=== PATIENT | male | born 1975 | race Two or more races ===

== ENCOUNTER 2016-06-18 05:10 | Day surgery (SDC) | payer OTHER ==
[2016-05-28 10:35] VITALS: BMI 25.8
[2016-06-18] MEDS ORDERED: ROPIVACAINE HCL 0.5% 30ML VIAL ONE (07:52)
[2016-06-18] MEDS ORDERED: MIDAZOLAM HCL 2 MG/2 ML SINGLE DOSE VIAL ONE ×3 (07:53→08:19)
--- NOTE | 2016-06-18 07:56 | HP ---
Satellite [facility] - Chief Complaint Chief Complaint: right knee pain/instability - Past Medical History Allergies/Adverse Reactions: Allergies Allergy/AdvReac Type Severity Reaction Status Date / Time No Known Allergies Allergy Verified 06/18/16 07:04 - Current Medications Current Medications: Home Medications Medication Instructions Recorded Aspirin [ASA -] 81 mg PO DAILY 05/28/16 Oxycodone HCl/Acetaminophen 1 - 2 tab PO Q6H #50 tab MDD 8 06/18/16 [Percocet 5-325 mg Tablet -] Satellite Physical Exam - Physical Examination Vital Signs: Vital Signs Period Temp Pulse Resp BP Sys/Aparicio Pulse Ox Last 24 Hr 98.4 F 69 20 140/6 100 General Appearance: Well Nourished, Well Developed, Alert & Oriented x3 ENT: Clear Lung: Normal air movement Heart: Regular rate & rhythm Extremities: Other (right knee- + swelling, + ttp, + rosa, + ant draw, + pivot, nvi MRI + ACL rupture) Neurological: Intact, Alert, Oriented Satellite Impression/Plan - Impression/Plan Impression: right knee ACL rupture Operative Procedure: right knee arthroscopy with ACL reconstruction using allograft Date to be Performed: 06/18/16
[2016-06-18] MEDS ORDERED: DEXAMETHASONE SOD PHOSPHATE 4 MG/1 ML VIAL ONE (08:19)
[2016-06-18] MEDS ORDERED: ceFAZolin SODIUM 1 GM VIAL ONE ×2 (08:19→13:32)
[2016-06-18] MEDS ORDERED: KETOROLAC TROMETHAMINE 30 MG/1 ML VIAL ONE (08:19)
[2016-06-18] MEDS ORDERED: PROPOFOL 20 ML ONE ×3 (08:19)
[2016-06-18] MEDS ORDERED: SODIUM CHLORIDE 0.9% P/F 10 ML VIAL IJ ONE (08:19)
[2016-06-18] MEDS ORDERED: ceFAZolin SODIUM 1 GM VIAL IVPB ONE (08:45)
--- NOTE | 2016-06-18 09:48 | OP ---
Operative Note - Note: Operative Date: 06/18/16 ([facility]) Pre-Operative Diagnosis: right knee acl rupture Operation: right knee arthroscopy with ACL reconstruction using allograft Implants: arthrex graftlink Post-Operative Diagnosis: Same as Pre-op Surgeon: Ar Haney Automotive Artist: Johnny Hays Anesthesiologist/ELECTRICAL CONTACTS ADJUSTER: Casper Bowden Jr. Anesthesia: Spinal, Local Specimens Removed: shavings Estimated Blood Loss (mls): 5 Operative Report Dictated: Yes
[2016-06-18] MEDS ORDERED: CEFAZOLIN 1 GM in DEXTROSE 5%-WATER - 50 ML IVPB ONE (10:00)
[2016-06-18] MEDS ORDERED: ONDANSETRON 4 MG/2 ML VIAL IVPUSH PRN (10:31)
[2016-06-18] MEDS ORDERED: oxyCODONE HCL 5 MG TABLET PO PRN (10:31)
[2016-06-18] MEDS ORDERED: LACTATED RINGERS SOLUTION 1,000 ML IV SCH (10:45)
[2016-06-18 13:57] VITALS: TEMP 97.7
[2016-06-18 16:02] VITALS: BP 138/76; PULSE 73
--- NOTE | 2016-06-19 11:01 | SPEC ---
DATE OF OPERATION: 06/18/2016 PREOPERATIVE DIAGNOSIS: Right anterior cruciate ligament tear. POSTOPERATIVE DIAGNOSIS: Right anterior cruciate ligament tear. PROCEDURE: Right anterior cruciate ligament reconstruction with Arthrex "GraftLink." SURGICAL ATTENDING: Ar Haney MD SUPPORT COORDINATOR: NIMA Noonan ANESTHESIA: Regional and spinal. CLOSURE: An Arthrex GraftLink for the graft and 3-0 nylon for skin. ESTIMATED BLOOD LOSS: Negligible. COMPLICATIONS: None. CONDITION: To recovery room in stable condition. DESCRIPTION OF OPERATIVE PROCEDURE: Patient was taken to the operating room on June 18, 2016. Regional and spinal anesthesia was administered by the anesthesiologist. Intravenous Kefzol was administered prophylactically prior to the case. Patient was placed supine on the operating room table, and the right lower extremity was prepped and draped in usual sterile fashion. Superolateral and medial lateral infrapatellar portal sites were made with a 15-blade blunt trocar. The superolateral portal was used as the outflow portal, with outflow trocar being placed. The lateral infrapatellar portal was the scope portal, and the medial infrapatellar portal was the working portal. Scope was placed up into the suprapatellar pouch. The pouch was visualized to be clean, the medial and lateral gutters visualized to be clean. The undersurface of the patella and trochlea were visualized to be intact with valgus stress on the knee. The medial compartment was entered. The medial meniscus was visualized, probed, and found to be intact. The medial femoral condyle was run and found to be intact, as was the medial tibial plateau. In the figure-4 position, the lateral compartment was entered. The lateral meniscus was visualized, probed, and found to be intact. Lateral femoral condyle was run and found to be intact, as was the lateral tibial plateau. At 90 degrees, the ACL was visualized to be completely torn. Its stump was debrided using the ArthroCare and the shaver. A notchplasty was then performed using the bur and the shaver, gaining sufficient width and height of the notch to perform the procedure. This also allowed us to see the site in the posterior aspect of the notch for the appropriate femoral tunnel placement. Using an [id number] guide with a small stab incision on the anterolateral distal femur, a FlipCutter was drilled into the knee at the appropriate aspect in the posterior aspect of the notch. The FlipCutter was then flipped and then a retrograde drilling of about 25 mm was performed and no violation of the lateral femoral cortex. FlipCutter was then pushed back into the knee, unflipped, and pulled out of the knee. A FiberStick suture was placed down this cannula and this tunnel exiting the portal and was clamped to itself for later use. All bone fragments in the knee were debrided using the shaver. Using the tibial guide, a FlipCutter was drilled from the anteromedial proximal tibia until it entered the knee just anterior to the PCL. The FlipCutter was deployed. Retrograde drilling was performed approximately 25 mm. The FlipCutter was placed back into the knee, unflipped, and pulled out of the knee. A TigerStick suture was placed up the tibial tunnel and exiting the inferomedial portal and clamped to itself. All bone fragments inside the knee were debrided using the shaver. The GraftLink was prepared on the back table with a button fastened to the toggle sutures. The graft was pulled into the knee using the FiberStick and the TigerStick up in the femur and down the tibia, first up in the femur and allowing the button to deploy on the lateral femoral cortex and engage. The toggle sutures were used to pull the graft up to over 20 mm into the femoral tunnel. Then, the toggle sutures were used to cinch a button down to the anteromedial proximal tibia, cinching the tibial side of the graft to the anteromedial cortex of the tibia. With 20 degrees of flexion, posterior drill being applied, both toggle sutures were pulled in order to tension the graft appropriately. The knee was taken through a range of motion and found to have full extension, full flexion, with excellent tension of the ACL, good crossing of the PCL, and no impingement on the notch. All sutures were cut flush on the tibia and pulled through on the femur. Then, the arthroscopic cutter was used to push and cut the sutures flush with the tibial cortex. All portals were closed using 3-0 nylon. A sterile pressure dressing was applied. The patient was awakened from anesthesia and transferred to the recovery room in stable condition. No complications. Estimated blood loss negligible. Alirio [id number]
--- NOTE | 2016-06-21 15:39 | PATH ---
Surgical Pathology Report Patient Name: TAVON SINGER [facility]. Rec. #: [id number] /Age/Gender: 1975 (Age: 41) / M Account: [id number] Location: [facility] SURGICAL Taken: 06/18/2016 Received: 06/18/2016 Reported: 06/21/2016 Physicians: Ar Haney M.D. Specimen(s) Received SHAVINGS RIGHT KNEE Clinical History Right knee ACL tear Final Diagnosis SOFT TISSUE, RIGHT KNEE, ARTHROSCOPIC SHAVINGS: SYNOVIUM AND FIBROCARTILAGE WITH MYXOHYALINE DEGENERATION. Electronically Signed Sohail Valentino M.D. Gross Description Received in formalin, labeled "right knee shavings" is a 4.5 x 4.0 x 0.7 cm aggregate of singh-yellow soft tissue fragments. A chain sales representative portion is submitted in one cassette. /06/18/201606/18/2016
== END 2016-06-18 15:00 | disposition home or self-care (01) ==
LOC: JASU-SURG 05:10
PROVIDERS: ATTEND Orthopaedic Surgery
PROC: 0MUN4JZ Supplement Right Knee Bursa and Ligament with Synthetic Substitute, Percutaneous Endoscopic Approach (ICD-10-PCS; principal; 2016-06-18 08:15)
DX: S83.511A Sprain of anterior cruciate ligament of right knee, initial encounter (principal); X58.XXXA Exposure to other specified factors, initial encounter; Y93.9 Activity, unspecified; Y92.9 Unspecified place or not applicable
CPT/HCPCS: 88304-TC; 94760

== ENCOUNTER 2019-01-17 05:18 | Day surgery (SDC) | payer OTHER ==
[2019-01-10 15:26] VITALS: BMI 25.0
[2019-01-17] MEDS ORDERED: MIDAZOLAM HCL 2 MG/2 ML SINGLE DOSE VIAL ONE ×3 (06:59→07:13)
[2019-01-17] MEDS ORDERED: LIDOCAINE HCL/PF 2% SDV 5ML VIAL ONE (07:02)
[2019-01-17] MEDS ORDERED: DEXAMETHASONE SOD PHOSPHATE 4 MG/1 ML VIAL ONE (07:02)
[2019-01-17] MEDS ORDERED: KETOROLAC TROMETHAMINE 30 MG/1 ML VIAL ONE (07:02)
[2019-01-17] MEDS ORDERED: PROPOFOL 20 ML ONE ×2 (07:02)
[2019-01-17] MEDS ORDERED: SUCCINYLCHOLINE CHLORIDE 200 MG/10 ML SYRINGE ONE (07:09)
[2019-01-17] MEDS ORDERED: BUPIVACAINE HCL/PF 0.5% (5 MG/ML) 30 ML VIAL IJ ONE (07:10)
[2019-01-17] MEDS ORDERED: DEXAMETHASONE SOD PHOSPHATE/PF 10 MG/ML SDV ONE (07:26)
[2019-01-17] MEDS ORDERED: ONDANSETRON 4 MG/2 ML VIAL IVPUSH PRN (07:44)
[2019-01-17] MEDS ORDERED: oxyCODONE HCL 5 MG TABLET PO PRN ×2 (07:44)
[2019-01-17] MEDS ORDERED: LACTATED RINGERS SOLUTION 1,000 ML IV SCH (07:45)
[2019-01-17] MEDS ORDERED: ceFAZolin SODIUM 1 GM VIAL ONE (08:10)
[2019-01-17] MEDS ORDERED: SODIUM CHLORIDE 0.9% P/F 10 ML VIAL IJ ONE (08:10)
[2019-01-17] MEDS ORDERED: ceFAZolin SODIUM 1 GM VIAL IVPB ONE (08:17)
[2019-01-17] MEDS ORDERED: ACETAMINOPHEN 1000 MG/100 ML VIAL (NON FORMULARY) IVPB ONE (09:30)
--- NOTE | 2019-01-17 10:04 | HP ---
Satellite H - Chief Complaint Chief Complaint: right knee pain, instability - Past Medical History Allergies/Adverse Reactions: Allergies Allergy/AdvReac Type Severity Reaction Status Date / Time No Known Allergies Allergy Verified 01/17/19 06:42 - Current Medications Current Medications: Home Medications Medication Instructions Recorded Aspirin [ASA -] 81 mg PO DAILY 05/28/16 Multivitamin [One-Daily 1 each PO DAILY 01/10/19 Multi-Vitamin] Oxycodone HCl/Acetaminophen 1 - 2 tab PO Q6H #30 tab MDD 6 01/17/19 [Percocet 5-325 mg Tablet] Satellite Physical Exam - Physical Examination Vital Signs: Vital Signs Period Temp Pulse Resp BP Sys/Aparicio Pulse Ox Last 24 Hr 98.0 F-98.0 F 49-49 20-20 128-128/78-78 99 General Appearance: Well Nourished, Well Developed, Alert & Oriented x3 ENT: Clear Lung: Normal air movement Heart: Regular rate & rhythm Extremities: Other (right knee- + healed surgical incisions, + rosa, + ant draw, + pivot, nvi, MRI + re-teat of acl) Neurological: Intact, Alert, Oriented Satellite Impression/Plan - Impression/Plan Impression: right knee acl rupture Operative Procedure: right knee arthroscopy with ACL reconstruction using btb autograft Date to be Performed: 01/17/19
--- NOTE | 2019-01-17 10:07 | OP ---
Operative Note - Note: Operative Date: 01/17/19 ([facility]) Pre-Operative Diagnosis: right knee acl rupture Operation: right knee arthroscopy with revision ACL reconstruction using btb autograft, removal of hardware Post-Operative Diagnosis: Same as Pre-op Surgeon: Ar Haney Costume Shop Manager: Johnny Hays Anesthesiologist/ELECTRICAL UNIT REBUILDER: Peng Sauer Anesthesia: General, Local Specimens Removed: endo button, fiber wire Estimated Blood Loss (mls): 5 (tourniquet) Operative Report Dictated: Yes
[2019-01-17] MEDS ORDERED: ceFAZolin 2 GRAM PREMIX BAG IVPB ONE (11:00)
--- NOTE | 2019-01-17 13:40 | OP ---
DATE OF OPERATION: 01/17/2019 PREOPERATIVE DIAGNOSIS: Recurrent right anterior cruciate ligament tear, right knee. POSTOPERATIVE DIAGNOSIS: Recurrent right anterior cruciate ligament tear, right knee. PROCEDURE: Revision right anterior cruciate ligament tear with efai-xgbchyx-ills autograft harvesting and removal of hardware. SURGICAL ATTENDING: Ar Haney MD RESOURCE COORDINATOR: NIMA Noonan ANESTHESIA: Spinal and regional. CLOSURE: Metallic Arthrex interference screw fixation for graft, 0 Vicryl fascia and tendon, 2-0 paratenon and subcutaneous, 3-0 Monocryl subcuticular, skin glue for skin, 4-0 nylon for outflow portal. COMPLICATIONS: None. CONDITION: To recovery room in stable condition. ESTIMATED BLOOD LOSS: Negligible. TOURNIQUET TIME: Approximately an hour. DESCRIPTION OF OPERATIVE PROCEDURE: Patient was taken to the operating room on January 17, 2019. Spinal and regional anesthesia was administered by the anesthesiologist. IV Kefzol was administered prophylactically prior to the case. A well-padded pneumatic tourniquet was placed on the right proximal thigh. The right lower extremity was prepped and draped in the usual sterile fashion. First the rxzl-[id number]-vdhg graft was harvested. A 6-cm longitudinal incision centered over the patella tendon was incised. Hemostasis was achieved with Bovie cautery. This was done after the tourniquet was inflated to 275 mmHg. Sharp dissection was carried down to the level of the tendon. Metzenbaum scissors were used to expose the patella tendon and the distal 1/2 of the patella and proximal part of the tibial tubercle. A 10-mm double blade was used to harvest the central tendon of the patella tendon, 10 x 25-mm bone plugs were harvest from the patella and from the tibial tubercle using a micro-oscillating saw. Two drill holes were placed through each plug, and No. 2 FiberWire traction sutures were placed. The graft was measured for thickness and length and placed on the back table for later use. The rent in the patella tendon was closed using 0 Vicryl interrupted suture. Next, the arthroscopic portion of the case was performed. Superolateral portal was made with a 15 blade blunt trocar. The medial and lateral infrapatellar portal was then made through the previously made incision. The scope was placed in the lateral infrapatellar portal and up into the suprapatellar pouch. Fascia was visualized to be clean. The medial and lateral gutters were visualized to be clean. The undersuface of the patella and trochlea were visualized to be intact with valgus stress on the knee. The medial compartment was entered. The medial meniscus was visualized and probed and found to be intact. The medial femoral condyle was run and found to be intact as was the medial tibial plateau. In a figure four position, lateral compartment was entered. Lateral meniscus was visualized, probed, and found to be intact. Lateral femoral condyle was run and found to be intact as was the lateral tibial plateau. At 90 degrees, the ACL was found to be completely torn. It had a previous graft that was used for its previous reconstruction. This was debrided using the shaver. Sutures up in the femoral tunnel and tibial tunnel were pulled out using a grasper as were pieces of the graft that had not really incorporated into either tunnel. Palpable button on the anteromedial proximal tibia was also exposed and debrided along with the sutures and pulled out as well. A repeat notchplasty was performed gaining sufficient width and height to perform the procedure. The knee was flexed to 135 degrees of flexion. A beef pin was placed through the AM portal and was drilled in the posterior aspect of the notch exiting anterolateral distal thigh. The trajectory of this tunnel was different from the previous surgery giving us a good bony tunnel posteriorly. A shuttle suture was pulled through the beef pin and exiting the anterolateral distal thigh and was placed in the back of the knee. The 10-mm retrodrill was used to drill a tunnel from just anterior to the PCL down to the anteromedial proximal tibia. Again, all residual graft from the previous surgery was removed as were the sutures. The shuttle's loop was pulled down with a grasper down the tibial tunnel until it exited the anteromedial proximal tibia. The graft was then pulled up into place through the tibial tunnel, through the knee, and into the femoral tunnel. An 8 x 25-mm Arthrex metallic interference screw was placed between the femoral tunnel, femoral bone plug achieving excellent fixation. Range of motion revealed excellent tracking over the PCL with no impingement on the notch throughout. Due to the fact of some intersecting tunnels between the new tunnel made and the old tunnel from the initial procedure on the tibial side, the tibial tunnel was felt to be larger than the usual cylindrical 10 mm. We, therefore, stacked screws to fixate the tibial screw. First, a small 7-mm screw was placed posterior to the graft achieving slight fixation but filling up the void in that region. Then a 9 x 25-mm tibial Arthrex metallic screw was placed more anteriorly between the bone plug and the tunnel achieving excellent fixation. The knee was taken through a range of motion and found to go from full extension, full flexion with negative Rivera, negative pivot shift, and anterior, posterior drawer. Direct visualization of the graft revealed excellent crossing of the PCL with excellent tension on the graft with no impingement. The knee was irrigated and drained of its fluid. The donor sites in the patella and tibia were filled with StimuBlast putty as well as some fragments of bone that were taken off the graft as it was fashioned to the appropriate size. The paratenon was closed using 2-0 Vicryl with a running suture. Subcutaneous was closed with 2-0 Vicryl interrupted suture and 3-0 Monocryl subcuticular with skin glue for skin, 4-0 nylon was used to close the superolateral portal after the trocar was pulled. Sterile pressure dressing followed by a knee immobilizer was applied. Patient was awakened from anesthesia and transferred to recovery room in stable condition. No complications. Estimated blood loss negligible. Tourniquet time was approximately 1 hours' time. Alirio [id number]
[2019-01-17 14:22] VITALS: BP 132/78; PULSE 75; TEMP 98.3
--- NOTE | 2019-01-18 17:11 | PATH ---
Surgical Pathology Report Patient Name: TAVON SINGER [facility]. Rec. #: [id number] /Age/Gender: 1975 (Age: 43) / M Account: [id number] Location: [facility] SURGICAL Taken: 01/17/2019 Received: 01/17/2019 Reported: 01/18/2019 Physicians: Ar Haney M.D. Specimen(s) Received RIGHT KNEE SHAVINGS Clinical History Right ACL tear Final Diagnosis KNEE SHAVINGS, RIGHT, ACL REPAIR: FRAGMENTS OF BONE, CARTILAGE, DENSE FIBROCONNECTIVE TISSUE, ADIPOSE TISSUE, AND SYNOVIUM. Electronically Signed Tiffany Magallon M.D. Gross Description Received in formalin, labeled "right knee shavings," is a 4 x 4 x 0.8 cm. aggregate of singh-yellow soft tissue fragments. A national sales representative portion is submitted in one cassette MLSZ/01/17/2019 [place]/01/17/2019
== END 2019-01-17 14:20 | disposition home or self-care (01) ==
LOC: JASU-SURG 05:18
PROVIDERS: ATTEND Orthopaedic Surgery
PROC: 0QBD0ZZ Excision of Right Patella, Open Approach (ICD-10-PCS; 2019-01-17)
PROC: 0MSN4ZZ Reposition Right Knee Bursa and Ligament, Percutaneous Endoscopic Approach (ICD-10-PCS; principal; 2019-01-17 08:00)
DX: S83.511A Sprain of anterior cruciate ligament of right knee, initial encounter (principal); X58.XXXA Exposure to other specified factors, initial encounter; Y93.9 Activity, unspecified; Y92.9 Unspecified place or not applicable; Y99.9 Unspecified external cause status
CPT/HCPCS: 20900; 29888; C1713; 88304-TC; 94760; 97116-GP; J0131

== ENCOUNTER 2020-03-05 04:45 | Day surgery (SDC) | payer OTHER ==
[2020-03-04 09:46] VITALS: BMI 25.8
[2020-03-05] MEDS ORDERED: fentaNYL CITRATE 250 MCG/5 ML VIAL ONE (06:55)
[2020-03-05] MEDS ORDERED: PROPOFOL 20 ML ONE (06:55)
[2020-03-05] MEDS ORDERED: MIDAZOLAM HCL 2 MG/2 ML SINGLE DOSE VIAL ONE (06:55)
[2020-03-05] MEDS ORDERED: LIDOCAINE 1%/EPI 1:100000 (50 ML MULTI DOSE VIAL) ONE (07:25)
[2020-03-05] MEDS ORDERED: ceFAZolin SODIUM 1 GM VIAL IVPB ONE (08:06)
[2020-03-05] MEDS ORDERED: LIDOCAINE 1%/EPI 1:100000 (20 ML MULTI DOSE VIAL) IJ ONE (08:28)
[2020-03-05] MEDS ORDERED: BUPIVACAINE HCL/PF 0.5% (5 MG/ML) 30 ML VIAL IJ ONE (08:31)
[2020-03-05] MEDS ORDERED: DEXAMETHASONE SOD PHOSPHATE 4 MG/1 ML VIAL ONE (08:32)
[2020-03-05] MEDS ORDERED: KETOROLAC TROMETHAMINE 30 MG/1 ML VIAL ONE (08:32)
[2020-03-05] MEDS ORDERED: ceFAZolin SODIUM 1 GM VIAL ONE (08:32)
[2020-03-05 10:15] VITALS: TEMP 97.8
[2020-03-05] MEDS ORDERED: oxyCODONE HCL 5 MG TABLET PO PRN ×2 (11:07)
[2020-03-05] MEDS ORDERED: ONDANSETRON 4 MG/2 ML VIAL IVPUSH PRN (11:07)
[2020-03-05] MEDS ORDERED: LACTATED RINGERS SOLUTION 1,000 ML IV SCH (11:15)
[2020-03-05 12:21] VITALS: BP 117/66; PULSE 66
== END 2020-03-05 12:25 | disposition home or self-care (01) ==
LOC: JASU-SURG 04:45
PROVIDERS: ATTEND Orthopaedic Surgery
PROC: 0SQC4ZZ Repair Right Knee Joint, Percutaneous Endoscopic Approach (ICD-10-PCS; 2020-03-05)
PROC: 0SBC4ZZ Excision of Right Knee Joint, Percutaneous Endoscopic Approach (ICD-10-PCS; principal; 2020-03-05 08:00)
DX: M23.8X1 Other internal derangements of right knee (principal)
CPT/HCPCS: 88304-TC; 94760